=== PATIENT | female | born 1965 | race Caucasian/White ===

== ENCOUNTER 2019-07-25 14:25 | Emergency (ER) | payer BC, OTHER ==
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
[2019-07-25 15:07] VITALS: BP 154/77
--- NOTE | 2019-07-25 15:31 | UC ---
Ear Complaint HPI - HPI Summary HPI Summary: 53 yo female with the onset of pain/swelling behind left ear that started <24 hours ago left ear pain and decreased hearing no n/v has felt feverish with chills myalgias (severe) - History of Current Complaint Chief Complaint: UCEar Stated Complaint: L EAR COMP Time Seen by Provider: 07/25/19 15:11 Hx Obtained From: Patient Hx Last Menstrual Period: unknown Onset/Duration: Gradual Onset Severity Initially: Moderate Severity Currently: Moderate Pain Intensity: 6 Pain Scale Used: 0-10 Numeric Aggravating Factors: Nothing Associated Signs/Symptoms: Positive: Hearing Loss - Allergies/Home Medications Allergies/Adverse Reactions: Allergies Allergy/AdvReac Type Severity Reaction Status Date / Time ampicillin Allergy Severe Vomiting Verified 07/25/19 14:54 Home Medications: Home Medications Valsartan/HCTZ 320/12.5(NF) [Diovan Hct 320/12.5(NF)] 1 tab PO QAM 07/25/19 [ History Confirmed 07/25/19] Verapamil TAB* [Calan TAB*] 240 mg PO QAM 07/25/19 [History Confirmed 07/25/19] diphenhydrAMINE HCl [Benadryl Allergy] 25 mg PO ONCE PRN 07/25/19 [History Confirmed 07/25/19] PMH/Surg Hx/FS Hx/Imm Hx Previously Healthy: Yes Cardiovascular History: Hypertension - Surgical History Surgical History: Yes Surgery Procedure, Year, and Place: gallbladder 1999, appy 2001 - Family History Known Family History: Positive: Hypertension, Non-Contributory - Social History Alcohol Use: Occasionally Substance Use Type: None Smoking Status (MU): Never Smoked Tobacco Review of Systems All Other Systems Reviewed And Are Negative: Yes Constitutional: Positive: Negative Skin: Positive: Negative Eyes: Positive: Negative ENT: Positive: Ear Ache Respiratory: Positive: Negative Cardiovascular: Positive: Negative Gastrointestinal: Positive: Negative Genitourinary: Positive: Negative Motor: Positive: Negative Neurovascular: Positive: Negative Musculoskeletal: Positive: Myalgia Neurological: Positive: Negative Psychological: Positive: Negative Physical Exam Triage Information Reviewed: Yes Appearance: Well-Appearing, No Pain Distress, Well-Nourished Vital Signs: Initial Vital Signs Temp 99 F 07/25/19 14:59 Pulse 75 07/25/19 14:59 Resp 22 07/25/19 14:59 BP 154/77 07/25/19 14:59 Pulse Ox 98 07/25/19 14:59 Vital Signs Reviewed: Yes Eyes: Positive: Conjunctiva Clear ENT: Positive: TMs normal - Right normal, Uvula midline, Other - left TM appears retracted/a lot of whitish debris in EAC indurated/slightly red and tender left mastoid. Negative: Hearing grossly normal - slight decreased hearing left ear, Pharynx normal, Nasal congestion, Nasal drainage, Tonsillar swelling, Tonsillar exudate, Trismus, Muffled voice, Dental tenderness, Sinus tenderness Neck: Positive: Supple, Nontender, No Lymphadenopathy Respiratory: Positive: Lungs clear, Normal breath sounds, No respiratory distress, No accessory muscle use Cardiovascular: Positive: RRR, No Murmur Musculoskeletal: Positive: ROM Intact, No Edema Neurological: Positive: Alert Psychological Exam: Normal Skin Exam: Normal Ear Complaint Course/Dx - Course Course Of Treatment: I suspect mastoiditis. We currently have no chemical radiation technician. I explained to patient that if this is mastoiditis and it goes untreated it could lead to complications including brain abscess. I called [facility] ER and spoke to Sara Banuelos NP Pt will go to ER via POV - Differential Dx/Diagnosis Provider Diagnosis: Acute mastoiditis of left side Discharge ED - Sign-Out/Discharge Documenting (check all that apply): Patient Departure All imaging exams completed and their final reports reviewed: No Studies - Discharge Plan Condition: Stable Disposition: TRANS HIGHER LVL OF CARE FAC Referrals: Josey Maxwell [Primary Care Provider] - Additional Instructions: I suggest you go to the ER for further evaluation ' I am concerned you may have mastoiditis I spoke to Sara Banuelos NP and they are expecting you - Billing Disposition and Condition Condition: STABLE Disposition: Trans Higher Lvl of Care Fac
== END 2019-07-25 15:35 | disposition short-term general hospital (02) ==
LOC: UCCORT 14:25
DX: H70.002 Acute mastoiditis without complications, left ear (principal); M79.10 Myalgia, unspecified site; I10 Essential (primary) hypertension; Z88.0 Allergy status to penicillin
CPT/HCPCS: 99202; G0463